=== PATIENT | female | born 1960 | race Caucasian/White ===

== ENCOUNTER 2018-07-06 10:48 | Emergency (ER) | payer OTHER ==
[2018-07-06 10:53] VITALS: BP 113/79; PULSE 79; RESP 18; TEMP 97.8
--- NOTE | 2018-07-06 11:24 | ED ---
General Adult HPI - General Chief complaint: Extremity Injury, Lower Stated complaint: left foot injury Time Seen by Provider: 07/06/18 10:55 Source: patient, RN notes reviewed Mode of arrival: wheelchair Limitations: no limitations - History of Present Illness Initial comments: Patient's a 58-year-old female presented to the emergency room today with chief complaint of injury to the left foot that occurred 2 days ago. She states she was staying at a chair when it gave over and she landed down onto the ground and hit her foot. She states that she has had pain to the second through fifth digits of the left foot and metatarsals region. Patient denies any other injuries or complaints. States she's not on any blood thinners. Patient denies any recent fever, chills, shortness of breath, chest pain, back pain, abdominal pain, nausea or vomiting, numbness or tingling, headaches or visual changes, or any other complaints. - Related Data Home Medications Medication Instructions Recorded Confirmed Simvastatin 40 mg PO DAILY 08/22/15 08/22/15 Allergies Allergy/AdvReac Type Severity Reaction Status Date / Time No Known Allergies Allergy Verified 07/06/18 10:53 Review of Systems ROS Statement: Those systems with pertinent positive or pertinent negative responses have been documented in the HPI. ROS Other: All systems not noted in ROS Statement are negative. Past Medical History Past Medical History: Hyperlipidemia History of Any Multi-Drug Resistant Organisms: None Reported Past Surgical History: Tubal Ligation Past Psychological History: No Psychological Hx Reported Smoking Status: Current every day smoker Past Alcohol Use History: None Reported Past Drug Use History: Marijuana General Exam - General Exam Comments Initial Comments: General: The patient is awake and alert, in no distress, and does not appear acutely ill. Neck: The neck is supple, there is no tenderness or JVD. Musculoskeletal: 2 through 5 on the left foot. Locally tender over the proximal fourth and fifth metatarsals. Tender to palpation over the distal second through fifth metatarsals down into the digits 2 through 5. Repeated no step-off. Pedal pulses 2+. Sensations are intact. Patient shows good range of motion. No tenderness to the left ankle or knee. Neurological: A&O x 3. CN II-XII intact, There are no obvious motor or sensory deficits. Coordination appears grossly intact. Speech is normal. Skin: Skin is warm and dry and no rashes or lesions are noted. Psychiatric: Normal mood and affect. Limitations: no limitations Course Vital Signs 07/06/18 10:49 Temperature 97.8 F Pulse Rate 79 Respiratory 18 Rate Blood Pressure 113/79 O2 Sat by Pulse 98 Oximetry Medical Decision Making - Medical Decision Making X-ray of the left foot reviewed and does show distal fifth metatarsal fracture nondisplaced with a proximal phalanx fracture of the fifth digit. Results were discussed with the patient. Options of a splint were discussed she states she would like to use a postop shoe and she will stay nonweightbearing given prescription for crutches and advised follow-up with orthopedics over the next 2 days. Disposition Clinical Impression: Foot fracture, left, Toe fracture, left Disposition: HOME SELF-CARE Condition: Good Instructions: Foot Fracture in Adults (ED) Additional Instructions: Please stay nonweightbearing. Please follow up orthopedics over the next 2 days. Please return to emergency room for any other concerns for any other concerns. Is patient prescribed a controlled substance at d/c from ED?: No Referrals: None,Stated [Primary Care Provider] - 1-2 days Brett Che MD [Medical Doctor] - 1-2 days Time of Disposition: 11:52
--- NOTE | 2018-07-06 11:24 | XR ---
EXAMINATION TYPE: XR foot complete LT , 3 VIEWS DATE OF EXAM ORDERED: 07/06/2018 HISTORY: Pain. COMPARISON: None. FINDINGS: There is a mildly displaced fracture of the distal metaphysis of the fifth metatarsal. The re also appears to be an undisplaced fracture of the base of the proximal phalanx of the fifth digit. No other definite fractures are seen. There is mild degenerative change in the left first MTP joint. There is a plantar calcaneal spur. IMPRESSION: 1. MINIMALLY DISPLACED FRACTURES OF THE DISTAL METAPHYSIS OF THE LEFT FIFTH METATARSAL TARSAL. 2. MINIMALLY DISPLACED FRACTURE OF THE EPIPHYSIS OF THE MEDIAL ASPECT OF THE PROXIMAL PHALANX OF THE LEFT FIFTH DIGIT. 3. PLANTAR CALCANEAL SPUR. 4. MILD DEGENERATIVE CHANGE. CODE A: INITIAL ENCOUNTER FOR CLOSED FRACTURE
== END 2018-07-06 12:07 | disposition home or self-care (01) ==
LOC: EC 10:48
DX: S92.355A Nondisplaced fracture of fifth metatarsal bone, left foot, initial encounter for closed fracture (principal); S92.512A Displaced fracture of proximal phalanx of left lesser toe(s), initial encounter for closed fracture; E78.5 Hyperlipidemia, unspecified; F17.200 Nicotine dependence, unspecified, uncomplicated; Z79.899 Other long term (current) drug therapy; W07.XXXA Fall from chair, initial encounter
CPT/HCPCS: 99283

== ENCOUNTER → 2020-07-15 | Outpatient (CLI) | payer OTHER ==
--- NOTE | 2020-07-15 12:48 | BD ---
EXAMINATION TYPE: Axial Bone Density DATE OF EXAM: 07/15/2020 COMPARISON: NONE CLINICAL HISTORY: Z 78.0, postmenopausal Height: 65 Weight: 129.6 FRAX RISK QUESTIONS: Alcohol (3 or more units per day): no Family History (Parent hip fracture): yes Glucocorticoids (More than 3mos): no (Ex: prednisone, prednisolone, methylprednisolone, dexamethasone, and hydrocortisone). History of Fracture in Adulthood: no Secondary Osteoporosis: 1. Type 1 Diabetes: no 2. Hyperthyroidism: no 3. Menopause before 45: no 4. Malnutrition: no 5. Chronic liver disease: no Rheumatoid Arthritis: no Current Tobacco Use: yes RISK FACTORS HISTORY OF: History of Wrist Fracture: bilateral When: as a child Surgery to Spine/Hip(right/left)/Wrist (right/left): no Family History of Osteoporosis: no Active: yes Diet low in dairy products/other sources of calcium: yes Postmenopausal woman: around age 55 Lost more than 2 inches in height since high school: no MEDICATIONS: cholesterol meds Additional History: EXAM MEASUREMENTS: Bone mineral densitometry was performed using the Page Mage System. Bone mineral density as measured about the Lumbar spine is: ----- L1-L4(G/cm2): 1.327 T Score Values are as follows: ----- L2: 1.2 ----- L3: 1.1 ----- L4: 2.4 ----- L1-L4: 1.2 Bone mineral density : baseline Bone mineral density about the R hip (g/cm2): 0.947 Bone mineral density about the L hip (g/cm2): 1.036 T Score values are as follows: -----R Neck: -0.7 -----L Neck: 0.0 -----R Total: -1.2 -----L Total: -0.7 Bone mineral density : baseline IMPRESSION: Normal (Values between +1 and -1 indicate normal bone mass). Consider repeating this study in 5 year s or sooner if there is some new clinical indication. NOTE: T-SCORE=SD OF THE YOUNG ADULT MEAN.
--- NOTE | 2020-07-19 08:43 | MM ---
Reason for exam: screening (asymptomatic). Last mammogram was performed 1 year and 8 months ago. History: Patient is postmenopausal. Family history of breast cancer in sister at age 47. Took hormonal contraceptives for 3 years. Physical Findings: A clinical breast exam by your physician is recommended on an annual basis and results should be correlated with mammographic findings. MG Screening Mammo w CAD Bilateral CC and MLO view(s) were taken. Prior study comparison: November 21, 2018, bilateral MG screening mammo w CAD. July 17, 2016, bilateral MG screening mammo w CAD. There are scattered fibroglandular densities. No significant changes when compared with prior studies. ASSESSMENT: Benign, BI-RAD 2 RECOMMENDATION: Routine screening mammogram of both breasts in 1 year.
== END | disposition home or self-care (01) ==
LOC: RADMAMWWP 07:55
PROVIDERS: ATTEND Internal Medicine
DX: Z12.31 Encounter for screening mammogram for malignant neoplasm of breast (principal); Z78.0 Asymptomatic menopausal state
CPT/HCPCS: 77067; 77080

== ENCOUNTER → 2021-09-28 | Outpatient (CLI) | payer OTHER ==
--- NOTE | 2021-09-28 12:53 | MM ---
Reason for exam: screening (asymptomatic). Last mammogram was performed 1 year and 2 months ago. History: Patient is postmenopausal. Family history of breast cancer in sister at age 47. Took hormonal contraceptives for 3 years. Physical Findings: A clinical breast exam by your physician is recommended on an annual basis and results should be correlated with mammographic findings. MG Screening Mammo w CAD Bilateral CC and MLO view(s) were taken. Prior study comparison: July 15, 2020, bilateral MG screening mammo w CAD. November 21, 2018, bilateral MG screening mammo w CAD. There are scattered fibroglandular densities. There are benign appearing round calcifications bilaterally. There is no discrete abnormality. ASSESSMENT: Benign, BI-RAD 2 RECOMMENDATION: Routine screening mammogram of both breasts in 1 year.
== END | disposition home or self-care (01) ==
LOC: RADMAMWWP 09:02
PROVIDERS: ATTEND Internal Medicine
DX: Z12.31 Encounter for screening mammogram for malignant neoplasm of breast (principal); Z78.0 Asymptomatic menopausal state; Z80.3 Family history of malignant neoplasm of breast
CPT/HCPCS: 77067

== ENCOUNTER 2022-04-24 18:24 | Emergency (ER) | payer OTHER ==
[2022-04-24] MEDS ORDERED: IBUPROFEN 600 MG TAB PO STA (19:00)
[2022-04-24 19:31] LABS: Basophils % (A) 1 %; Eosinophils # (A) 0.1 k/uL (0-0.7); Eosinophils % (A) 1 %; HCT 40.3 % (34.0-46.0); HGB 13.2 gm/dL (11.4-16.0); Lymphocytes # (A) 0.2 k/uL (1.0-4.8); Lymphocytes % (A) 4 %; MCHC 32.8 g/dL (31.0-37.0); MCV 88.3 fL (80.0-100.0); Mean Platelet Volume 8.3; Monocytes # (A) 0.2 k/uL (0-1.0); Monocytes % (A) 4 %; Neutrophils # (A) 5.4 k/uL (1.3-7.7); Neutrophils % (A) 90 %; Platelet Count 171 k/uL (150-450); RBC 4.56 m/uL (3.80-5.40); RDW 12.7 % (11.5-15.5)
[2022-04-24 19:42] LABS: ALT 11 U/L (4-34); AST 19 U/L (14-36); African American GFR (CKD) >90 (>60 ml/min/1.73 sqM); Albumin 3.9 g/dL (3.5-5.0); Alkaline Phosphatase 88 U/L (38-126); Anion Gap 9 mmol/L; Blood Urea Nitrogen 9 mg/dL (7-17); Carbon Dioxide 22 mmol/L (22-30); Chloride 106 mmol/L (98-107); Glucose 144 mg/dL (74-99); Non-African American GFR(CKD) 80 (>60 ml/min/1.73 sqM); Potassium 3.5 mmol/L (3.5-5.1); Sodium 137 mmol/L (137-145); Total Bilirubin <0.1 mg/dL (0.2-1.3); Total Protein 6.4 g/dL (6.3-8.2)
[2022-04-24] MEDS ORDERED: KETOROLAC 15 MG/ML 1 ML VIAL IVP STA (20:06)
--- NOTE | 2022-04-24 20:46 | XR ---
EXAMINATION TYPE: XR chest 2V DATE OF EXAM: 04/24/2022 COMPARISON: NONE HISTORY: Pain TECHNIQUE: 2 views FINDINGS: Heart and mediastinum are normal. Lungs are clear. Diaphragm is normal. Slight anterior wed ging of a midthoracic vertebra 20%. There is osteopenia. IMPRESSION: No active cardiopulmonary disease. Normal heart.
[2022-04-24] MEDS ORDERED: SODIUM CHLORIDE 0.9% 1,000 ML IV STA (20:51)
--- NOTE | 2022-04-24 21:03 | ED ---
General Adult HPI - General Chief complaint: Fever Stated complaint: COVID + Time Seen by Provider: 04/24/22 19:00 Source: patient, EMS, RN notes reviewed Mode of arrival: EMS Limitations: no limitations - History of Present Illness Initial comments: Patient is a 61-year-old female presented to the emergency room with complaints of fatigue, fevers and body aches for 24 hours with exposure to COVID one week ago. She reports some palpitations, fevers, and occasional chills. She notes T-max at home of 102.7 despite utilizing tylenol at home. She denies any typical chest pain, severe shortness of breath, nausea, vomiting, abdominal pain, lethargy or altered mental status. She has a past medical history significant for diabetes and hyperlipidemia. - Related Data Home Medications Medication Instructions Recorded Confirmed Simvastatin 40 mg PO HS 08/22/15 04/24/22 Ergocalciferol (Vitamin D2) 1,250 mcg PO MO 04/24/22 04/24/22 [Drisdol (50,000 Iu)] Ezetimibe [Zetia] 10 mg PO HS 04/24/22 04/24/22 metFORMIN HCL [Glucophage] 500 mg PO BID 04/24/22 04/24/22 Previous Rx's Medication Instructions Recorded Nirmatrelvir/Ritonavir [Paxlovid 1 each PO BID 5 Days #10 tab 04/24/22 2X150 mg-100 mg (Eua)] Allergies Allergy/AdvReac Type Severity Reaction Status Date / Time No Known Allergies Allergy Verified 04/24/22 20:54 Review of Systems ROS Statement: Those systems with pertinent positive or pertinent negative responses have been documented in the HPI. ROS Other: All systems not noted in ROS Statement are negative. Past Medical History Past Medical History: Diabetes Mellitus, Hyperlipidemia History of Any Multi-Drug Resistant Organisms: None Reported Past Surgical History: Tubal Ligation Past Psychological History: No Psychological Hx Reported Smoking Status: Current every day smoker Past Alcohol Use History: None Reported Past Drug Use History: Marijuana General Exam General appearance: alert, in no apparent distress Head exam: Present: atraumatic, normocephalic, normal inspection Eye exam: Present: normal appearance, PERRL, EOMI. Absent: scleral icterus, c onjunctival injection, periorbital swelling ENT exam: Present: normal exam, mucous membranes moist Neck exam: Present: normal inspection. Absent: tenderness, meningismus, lymphadenopathy Respiratory exam: Present: normal lung sounds bilaterally. Absent: respiratory distress, wheezes, rales, rhonchi, stridor Cardiovascular Exam: Present: normal rhythm, tachycardia, normal heart sounds. Absent: systolic murmur, diastolic murmur, rubs, gallop GI/Abdominal exam: Present: soft, normal bowel sounds. Absent: distended, tenderness, guarding, rebound, rigid Extremities exam: Present: normal inspection, full ROM. Absent: pedal edema, joint swelling Back exam: Present: normal inspection Neurological exam: Present: alert, oriented X3, CN II-XII intact Psychiatric exam: Present: normal affect, normal mood Skin exam: Present: warm, dry, intact, normal color. Absent: rash Course Vital Signs 04/24/22 04/24/22 04/24/22 18:36 21:04 21:38 Temperature 103.3 F H 101.5 F H Pulse Rate 127 H 102 H Respiratory 20 18 Rate Blood Pressure 118/60 O2 Sat by Pulse 94 L 96 Oximetry 04/24/22 22:54 Temperature Pulse Rate 86 Respiratory 16 Rate Blood Pressure 136/85 O2 Sat by Pulse 95 Oximetry Medical Decision Making - Medical Decision Making 61-year-old female presenting with fatigue, fevers and palpitations with tachycardia and fever on exam. Recent Covid exposure. Due to tachycardia and fever will workup for sepsis septic shock with CBC, CMP, lactic acid, tsh with reflex and chest x-ray along with COVID swab. Will give IV fluids and Toradol. Covid Positive. Chest x-ray without acute cardiopulmonary processes. Calcium level low on labs will add ionized calcium. Ionized calcium slightly low at 4.4; no indication for admission. TSH slightly low, free T4 normal. Improved temperature and heart rate after IV fluid bolus and Toradol. Will discharge home with follow-up with her primary care provider after quarantine on Paxil of a prescription and symptomatic management. Advise quarantining for the next 5 days. Case discussed with Dr. Garcia. - Lab Data Result diagrams: 04/24/22 19:22 04/24/22 19:22 Lab Results 04/24/22 04/24/22 04/24/22 Range/Units 19:22 19: 19: WBC 6.0 (3.8-10.6) k/uL RBC 4.56 (3.80-5.40) m/uL Hgb 13.2 (11.4-16.0) gm/dL Hct 40.3 (34.0-46.0) % MCV 88.3 (80.0-100.0) fL MCH 29.0 (25.0-35.0) pg MCHC 32.8 (31.0-37.0) g/dL RDW 12.7 (11.5-15.5) % Plt Count 171 (150-450) k/uL MPV 8.3 Neutrophils % 90 % Lymphocytes % 4 % Monocytes % 4 % Eosinophils % 1 % Basophils % 1 % Neutrophils # 5.4 (1.3-7.7) k/uL Lymphocytes # 0.2 L (1.0-4.8) k/uL Monocytes # 0.2 (0-1.0) k/uL Eosinophils # 0.1 (0-0.7) k/uL Basophils # 0.0 (0-0.2) k/uL Sodium 137 (137-145) mmol/L Potassium 3.5 (3.5-5.1) mmol/L Chloride 106 (98-107) mmol/L Carbon Dioxide 22 (22-30) mmol/L Anion Gap 9 mmol/L BUN 9 (7-17) mg/dL Creatinine 0.81 (0.52-1.04) mg/dL Est GFR (CKD-EPI)AfAm >90 (>60 ml/min/1.73 sqM) Est GFR (CKD-EPI)NonAf 80 (>60 ml/min/1.73 sqM) Glucose 144 H (74-99) mg/dL Plasma Lactic Acid Abhishek (0.7-2.0) mmol/L Calcium 8.0 L (8.4-10.2) mg/dL Ionized Calcium Shelly (4.5-5.3) mg/dL Total Bilirubin <0.1 L (0.2-1.3) mg/dL AST 19 (14-36) U/L ALT 11 (4-34) U/L Alkaline Phosphatase 88 (38-126) U/L Total Protein 6.4 (6.3-8.2) g/dL Albumin 3.9 (3.5-5.0) g/dL TSH (0.465-4.680) mIU/L Free T4 (0.78-2.19) ng/dL Coronavirus (PCR) (Not Detectd) Heterophile Antibody Negative (Negative) 04/24/22 04/24/22 04/24/22 Range/Units 19:22 19:22 22:04 WBC (3.8-10.6) k/uL RBC (3.80-5.40) m/uL Hgb (11.4-16.0) gm/dL Hct (34.0-46.0) % MCV (80.0-100.0) fL MCH (25.0-35.0) pg MCHC (31.0-37.0) g/dL RDW (11.5-15.5) % Plt Count (150-450) k/uL MPV Neutrophils % % Lymphocytes % % Monocytes % % Eosinophils % % Basophils % % Neutrophils # (1.3-7.7) k/uL Lymphocytes # (1.0-4.8) k/uL Monocytes # (0-1.0) k/uL Eosinophils # (0-0.7) k/uL Basophils # (0-0.2) k/uL Sodium (137-145) mmol/L Potassium (3.5-5.1) mmol/L Chloride (98-107) mmol/L Carbon Dioxide (22-30) mmol/L Anion Gap mmol/L BUN (7-17) mg/dL Creatinine (0.52-1.04) mg/dL Est GFR (CKD-EPI)AfAm (>60 ml/min/1.73 sqM) Est GFR (CKD-EPI)NonAf (>60 ml/min/1.73 sqM) Glucose (74-99) mg/dL Plasma Lactic Acid Abhishek 1.0 (0.7-2.0) mmol/L Calcium (8.4-10.2) mg/dL Ionized Calcium Shelly 4.4 L (4.5-5.3) mg/dL Total Bilirubin (0.2-1.3) mg/dL AST (14-36) U/L ALT (4-34) U/L Alkaline Phosphatase (38-126) U/L Total Protein (6.3-8.2) g/dL Albumin (3.5-5.0) g/dL TSH 0.238 L (0.465-4.680) mIU/L Free T4 1.43 (0.78-2.19) ng/dL Coronavirus (PCR) Detected A (Not Detectd) Heterophile Antibody (Negative) - Radiology Data Radiology results: report reviewed, image reviewed No active cardiopulmonary process. Normal heart. Disposition Clinical Impression: COVID Disposition: HOME SELF-CARE Condition: Stable Instructions (If sedation given, give patient instructions): Fever in Adults (ED), COVID-19 (Coronavirus Disease 2019) (ED) Additional Instructions: Please complete course of Paxlovid. Please hold your simvastatin while taking it. Please quarantine for 5 days after testing positive and restart quarantine if symptoms worsen. Please utilize Tylenol as needed for fevers and pain. Taking vitamin C, Zinc, vitamin D 50 mcg, and melatonin may help symptom recovery. After quarantine please follow-up with your primary care provider. Please return to the Emergency Department if symptoms worsen or any other concerns. Prescriptions: Nirmatrelvir/Ritonavir [Paxlovid 2X150 mg-100 mg (Eua)] 1 each PO BID 5 Days #10 tab Is patient prescribed a controlled substance at d/c from ED?: No Referrals: Harsha Powell MD [Primary Care Provider] - 1-2 days Time of Disposition: 22:31
[2022-04-24 21:04] VITALS: TEMP 101.5
[2022-04-24 22:51] LABS: Ionized Calcium 4.4 mg/dL (4.5-5.3)
[2022-04-24 22:56] VITALS: BP 136/85; PULSE 86; RESP 16
[2022-04-24 23:28] LABS: T4, Free (Free Thyroxine) 1.43 ng/dL (0.78-2.19)
== END 2022-04-24 22:56 | disposition home or self-care (01) ==
LOC: EC 18:24
DX: U07.1 COVID-19 (principal); E11.9 Type 2 diabetes mellitus without complications; E78.5 Hyperlipidemia, unspecified; F17.200 Nicotine dependence, unspecified, uncomplicated
CPT/HCPCS: 36415; 71046; 80053; 82330; 83605; 84439; 84443; 85025; 86308; 87040; 87635; 96360; 96361; 99284

== ENCOUNTER 2023-12-02 11:56 | Emergency (ER) | payer OTHER ==
--- NOTE | 2023-12-02 12:08 | ED ---
Lower Extremity Injury HPI - General Chief Complaint: Extremity Injury, Lower Stated Complaint: Right leg injury Time Seen by Provider: 12/02/23 11:58 Source: patient, RN notes reviewed Mode of arrival: EMS Limitations: no limitations - History of Present Illness Initial Comments: This is a 63-year-old female who presents to the emergency department for a right leg injury. Patient slipped down 4-5 stairs, and landed on her right leg, causing a substantial deformity. Denies hitting her head or sustaining any loss of consciousness. Also denies any additional injuries. Not taking any blood thinners. EMS put the patient in a splint. They treated her with 50 mcg of fentanyl and 4 mg of Zofran. States that it was mildly beneficial, however she is still in significant pain. MD Complaint: leg injury - Related Data Home Medications Medication Instructions Recorded Confirmed Simvastatin 40 mg PO HS 08/22/15 04/24/22 Ergocalciferol (Vitamin D2) 1,250 mcg PO MO 04/24/22 04/24/22 [Drisdol (50,000 Iu)] Ezetimibe [Zetia] 10 mg PO HS 04/24/22 04/24/22 metFORMIN HCL [Glucophage] 500 mg PO BID 04/24/22 04/24/22 Previous Rx's Medication Instructions Recorded Nirmatrelvir/Ritonavir [Paxlovid 1 each PO BID 5 Days #10 tab 04/24/22 2X150 mg-100 mg (Eua)] HYDROcodone/APAP 7.5-325MG [Earth 1 tab PO Q6HR PRN 3 Days #12 tab 12/02/23 7.5-325] Ibuprofen 800 mg PO Q8H PRN #30 tab 12/02/23 Allergies Allergy/AdvReac Type Severity Reaction Status Date / Time No Known Allergies Allergy Verified 12/02/23 12:03 Review of Systems ROS Statement: Those systems with pertinent positive or pertinent negative responses have been documented in the HPI. ROS Other: All systems not noted in ROS Statement are negative. Past Medical History Past Medical History: Diabetes Mellitus, Hyperlipidemia History of Any Multi-Drug Resistant Organisms: None Reported Past Surgical History: Tubal Ligation Past Psychological History: No Psychological Hx Reported Smoking Status: Current every day smoker Past Alcohol Use History: None Reported Past Drug Use History: Marijuana General Exam Limitations: no limitations General appearance: alert, in distress Head exam: Present: atraumatic, normocephalic, normal inspection Respiratory exam: Present: normal lung sounds bilaterally. Absent: respiratory distress, wheezes, rales, rhonchi, stridor Cardiovascular Exam: Present: regular rate, normal rhythm, normal heart sounds. Absent: systolic murmur, diastolic murmur, rubs, gallop, clicks Extremities exam: Present: other (Deformity over the area of the distal tib-fib with obvious bulge and external rotation of the right foot/ankle. 2+ DP and PT pulses.) Neurological exam: Present: alert, oriented X3, CN II-XII intact Psychiatric exam: Present: normal affect, normal mood Skin exam: Present: warm, dry, intact, normal color. Absent: rash Course Vital Signs 12/02/23 12/02/23 12/02/23 11:58 12:37 15:11 Temperature Pulse Rate 96 91 Respiratory 18 16 Rate Blood Pressure 158/97 190/96 O2 Sat by Pulse 99 98 Oximetry 12/02/23 12/02/23 12/02/23 15:16 15:19 15:36 Temperature Pulse Rate 90 77 83 Respiratory 12 18 18 Rate Blood Pressure 185/86 119/87 137/117 O2 Sat by Pulse 98 98 96 Oximetry 12/02/23 12/02/23 12/02/23 15:56 16:16 17:06 Temperature 98.4 F Pulse Rate 78 73 80 Respiratory 16 18 18 Rate Blood Pressure 156/77 120/83 169/94 O2 Sat by Pulse 98 96 97 Oximetry Procedures - Orthopedic Fracture Reduction Fracture #1 Consent Obtained: verbal consent, written consent Side: right Fracture Reduction Location: tibia, fibula Analgesia: procedural sedation Technique: direct manipulation Post Reduction X-rays Demonstrate: acceptable reduction Post-Reduction Neuro Exam: intact Post-Reduction Vascular Exam: intact Splint Applied: Yes Patient Tolerated Procedure: well - Orthopedic Splinting/Casting Injury #1 Side: right Lower Extremity Injury Location: long leg, ankle Lower Extremity Immobilizer: posterior splint, stirrup splint Other Orthopedic Equipment: crutches Medical Decision Making - Medical Decision Making This is a 63 year old female who presents to the emergency department for a right leg injury. Was pt. sent in by a medical professional or institution? @ -No Did you speak to anyone other than the patient for history? @ -No Did you review nursing and triage notes? @ -Yes, and I agree, it is accurate with regards to the patient's symptoms. Were old charts reviewed? @ -No Differential Diagnosis? @ -Differential Musculoskeletal: Muscular strain, contusion, ligament sprain, fracture, arthritis, septic arthritis, bursitis, cellulitis, muscle spasm, nerve compression, DVT, arterial occlusion, herpes zoster, electrolyte abnormality, tumor.... This is not meant to be in all inclusive list EKG interpreted by me (3pts min.)? @ -Not obtained X-rays interpreted by me (1pt min.)? @ -X-ray of the right tib-fib obtained. My interpretation identifies a distal tib-fib fracture. Postreduction x-ray of the right tib-fib obtained. My interpretation identifies improved alignment of the ankle fractures. CT interpreted by me (1pt min.)? @ -Not obtained U/S interpreted by me (1pt. min.)? @ -Not obtained What testing was considered but not performed? (CT, X-rays, U/S, labs)? Why? @ -None What meds were considered but not given? Why? @ -None Did you discuss the management of the patient with other professionals? @ -No Did you reconcile home meds? @ -No Was smoking cessation discussed for >3mins.? @ -I discussed smoking cessation for greater than 3 minutes. The risk of smoking were discussed with the patient including but not limited to risks of cancer, stroke, coronary artery disease and COPD. Also discussed with patient were multiple methods of quitting smoking. Lastly we discussed the financial cost of smoking. Was critical care preformed (if so, how long)? @ -No Were there social determinants of health that impacted care today? How? (Homelessness, low income, unemployed, alcoholism, drug addiction, transportation, low edu. Level, literacy, decrease access to med. care, senior living, rehab)? @ -No Was there de-escalation of care discussed even if they declined? (Discuss DNR or withdrawal of care, Hospice)? @ -No What co-morbidities impacted this encounter? (DM, HTN, Smoking, COPD, CAD, Cancer, CVA, Hep., AIDS, mental health diagnosis, sleep apnea, morbid obesity)? @ -DM, HLD, smoking Was patient admitted / discharged? @ -Discharged. X-ray of the right tib-fib and foot obtained. This demonstrates an acute intra-articular fracture of the distal tibia with posterior dislocation/subluxation of the foot with respect to the tibia. There is also an acute fracture of the fibula distally without extension to the distal tibiofibular joint. Patient requested to proceed with conscious sedation versus pain medication. Conscious sedation performed using propofol with ED attending, Dr. Shelton. Fracture reduction performed by ED attending and I assisted with posterior stirrup splint application. Postreduction x-rays demonstrate significantly improved alignment of the ankle fractures. There is some residual displacement of the posterior malleolus fracture fragment by 5 mm. Patient given crutches and information for orthopedic follow up. Rx for Ibuprofen and Earth provided with dosing instructions reviewed. Patient discharged home in stable condition. Undiagnosed new problem with uncertain prognosis? @ -None Drug Therapy requiring intensive monitoring for toxicity (Heparin, Nitro, Insulin, Cardizem)? @ -None Were any procedures done? @ -Conscious sedation with propofol, fracture reduction of the right distal tib-fib, followed by posterior stirrup splint application. Diagnosis/symptom? @ -Distal tib/fib fracture, fall Acute, or Chronic, or Acute on Chronic? @ -Acute Uncomplicated (without systemic symptoms) or Complicated (systemic symptoms)? @ -Uncomplicated Side effects of treatment? @ -None Exacerbation, Progression, or Severe Exacerbation] @ -Not applicable Poses a threat to life or bodily function? @ -This will limit her ability to ambulate for the mean time. Return precautions reviewed in depth, the patient is instructed to return to the emergency department with any new, worsening, or concerning symptoms. Patient verbalized understanding. This case was discussed in detail with the attending ED physician, Dr. Shelton. Presentation, findings, and treatment plan discussed in detail as well. - Radiology Data Radiology results: report reviewed, image reviewed Disposition Clinical Impression: Fall, Fracture of distal end of tibia with fibula, Nicotine dependence Disposition: HOME SELF-CARE Instructions (If sedation given, give patient instructions): Ankle Fracture (ED), Leg Fracture (ED), Moderate Sedation (ED), Splint Care (ED), Procedural Sedation (ED) Additional Instructions: Return to the emergency department with any new, worsening, or concerning symptoms. Alternate with ibuprofen and Tylenol as needed for pain relief. Take the Earth sparingly when your pain is the most severe. Try to keep the leg elev ated. Contact orthopedics as listed below first thing tomorrow morning for a follow-up appointment. Prescriptions: Ibuprofen 800 mg PO Q8H PRN #30 tab PRN Reason: Pain HYDROcodone/APAP 7.5-325MG [Earth 7.5-325] 1 tab PO Q6HR PRN 3 Days #12 tab PRN Reason: Pain Is patient prescribed a controlled substance at d/c from ED?: Yes When asked, does pt state using other controlled substances?: No If prescribed controlled substance>3 days was MAPS reviewed?: Prescribed <3 Days Referrals: Harsha Powell MD [Primary Care Provider] - 1-2 days Luke Ovalles DO [Doctor of Osteopathic Medicine] - 1-2 days
[2023-12-02] MEDS: KETOROLAC 15 MG/ML 1 ML VIAL IVP STA (12:18)
[2023-12-02] MEDS: HYDROmorphone 1 MG/ML 1 ML SYRINGE IVP STA (12:20)
--- NOTE | 2023-12-02 13:03 | XR ---
EXAMINATION TYPE: XR tibia fibula RT, XR foot limited RT DATE OF EXAM: 12/02/2023 12:13 PM CLINICAL INDICATION:Female, 63 years old with history of Injury with deformity; [facility] COMPARISON: None TECHNIQUE: XR tibia fibula RT, XR foot limited RT; tibia/fibula was examined in AP and lateral projec tions. FINDINGS/IMPRESSION: 1. Acute intra-articular fracture of the distal tibia with posterior dislocation/subluxation of the foot with respect to the tibia. 2. Acute fracture of the fibula distally without extension to the distal tibiofibular joint. 3. There also appears to be a rotational component to the foot positioning.
[2023-12-02] MEDS: HYDROmorphone 0.5 MG/0.5 ML SYRINGE IVP STA (14:13)
[2023-12-02] MEDS: PROPOFOL 10 MG/ML 20 ML VIAL IV ONE (15:11)
[2023-12-02] MEDS: NALOXONE 0.4 MG/ML 1 ML VIAL IVP STA (15:16)
[2023-12-02 16:46] VITALS: RESP 18
--- NOTE | 2023-12-02 16:53 | XR ---
EXAMINATION TYPE: XR tibia fibula RT DATE OF EXAM: 12/02/2023 3:29 PM CLINICAL INDICATION:Female, 63 years old with history of Postreduction x-rays; [facility] COMPARISON: X-rays earlier today 12:16 PM TECHNIQUE: XR tibia fibula RT; tibia/fibula was examined in AP and lateral projections. FINDINGS: A splint has been placed, limiting bony details. Proximal tibia and fibula appear intact and normally aligned. There has been reduction of the previous distal tibial and fibular fractures with nearly no rmal alignment at the tibiotalar joint restored. Almost all the fragments appear in close to anatomic alignment, however the posterior malleolus fracture fragment is displaced about 5 mm posteriorly fro m the rest of the bone. Moderate-sized ankle joint effusion is suggested. Talar dome looks grossly in tact on these views. IMPRESSION: 1. Status post reduction and splinting, with significantly improved alignment of the ankle fractures . 2. Residual displacement of the posterior malleolus fracture fragment posteriorly by 5 mm.
[2023-12-02 17:25] VITALS: BP 169/94; PULSE 80; TEMP 98.4
== END 2023-12-02 17:10 | disposition home or self-care (01) ==
LOC: EC 11:56
DX: S82.301A Unspecified fracture of lower end of right tibia, initial encounter for closed fracture (principal); E11.9 Type 2 diabetes mellitus without complications; E78.5 Hyperlipidemia, unspecified; F17.200 Nicotine dependence, unspecified, uncomplicated; Z79.84 Long term (current) use of oral hypoglycemic drugs; Z79.899 Other long term (current) drug therapy; W01.0XXA Fall on same level from slipping, tripping and stumbling without subsequent striking against object, initial encounter
CPT/HCPCS: 73590; 73620; 99284; 96374; 96376; 96375 ×2; 99406; 27752; 99152; J2310; J1170 ×2; J1885; J2704

== ENCOUNTER → 2024-07-17 | Outpatient (CLI) | payer OTHER ==
--- NOTE | 2024-07-17 10:48 | BD ---
EXAMINATION TYPE: Axial Bone Density DATE OF EXAM: 07/17/2024 CLINICAL HISTORY: 64 years old Female. ICD-10 CODE: N95.1 MENOPAUSAL M85.88 BONE DENS , Additional History: Height: 64 Weight: 125 FRAX RISK QUESTIONS: Family History (Parent hip fracture): yes History of Fracture in Adulthood: yes Secondary Osteoporosis: Current Tobacco Use: yes RISK FACTORS HISTORY OF: MEDICATIONS: EXAM MEASUREMENTS: Bone mineral densitometry was performed using the [employer] System. Bone mineral density as measured about the Lumbar spine is: ----- L1-L4(G/cm2): 1.214 T Score Values are as follows: ----- L1: -0.6 ----- L2: 0.0 ----- L3: 0.7 ----- L4: 0.8 ----- L1-L4: 0.3 Z Score Values are as follows: ----- L1: 1.1 ----- L2: 1.7 ----- L3: 2.4 ----- L4: 2.5 ----- L1-L4: 2.0 Bone mineral density has: Decreased -8.5% since study of: 07-15-20 Bone mineral density about the R hip (g/cm2): 0.774 Bone mineral density about the L hip (g/cm2): 0.905 T Score values are as follows: -----R Neck: -1.1 -----L Neck: -0.3 -----R Total: -1.9 -----L Total: -0.8 Z Score values are as follows: -----R Neck: 0.4 -----L Neck: 1.2 -----R Total: -0.6 -----L Total: 0.5 Bone mineral density has: Decreased -5.8% since study of: 07-15-20 FRAX%s: The graph provided illustrates a 22.7% chance for a major osteoporotic fx and a 1.7% chance f or the hips probability for fx in 10 years time. IMPRESSION: Normal (Values between +1 and -1 indicate normal bone mass). Consider repeating this study in 5 year s or sooner if there is some new clinical indication. NOTE: T-SCORE=SD OF THE YOUNG ADULT MEAN. [facility], , 07/17/2024 10:45 AM
--- NOTE | 2024-07-18 14:00 | MM ---
Reason for Exam: Screening (asymptomatic). Last mammogram was performed 1 year(s) and 8 month(s) ago. Patient History: Menarche at age 13. First Full-Term at age 20. Postmenopausal. Patient used Hormonal Contraceptives for 3 years. Sister had breast cancer, age 47. Risk Values: Kristi 5 year model risk: 2.9%. NCI Lifetime model risk: 12.1%. Prior Study Comparison: 07/15/2020 Bilateral Screening Mammogram, [facility]. 09/28/2021 Bilateral Screening Mammogram, [facility]. 11/01/2022 Bilateral MG screening mammo w CAD, [facility]. Tissue Density: There are scattered areas of fibroglandular density. Findings: Analyzed By CAD. Right breast: There is no suspicious group of microcalcifications or new suspicious mass. Left breast: There is no suspicious group of microcalcifications or new suspicious mass. Architectural distortion left breast middle depth posterior nipple line subtly medial and CC view. Overall Assessment: Incomplete: need additional imaging evaluation, BI-RAD 0 Management: Diagnostic Mammogram of the left breast. [facility] will attempt to contact patient to return for supplemental views and ultrasound if indicated. Patient should continue monthly self-breast exams. A clinical breast exam by your physician is recommended on an annual basis. This exam should not preclude additional follow-up of suspicious palpable abnormalities. Note on Kristi scores and lifetime risk: 1. A Kristi score greater than 3% is considered moderate risk. If this is the case, consider specialist referral to assess eligibility for a risk reducing agent. 2. If overall lifetime risk for the development of breast cancer is 20% or higher, the patient may qualify for future screening with alternating mammogram and breast MRI. [facility], , 07/18/2024 1:57 PM. Electronically signed and approved by: Rosendo Roberts DO
== END | disposition home or self-care (01) ==
LOC: RADMAMWWP 08:31
PROVIDERS: ATTEND Internal Medicine
DX: Z12.31 Encounter for screening mammogram for malignant neoplasm of breast (principal); Z78.0 Asymptomatic menopausal state; Z80.3 Family history of malignant neoplasm of breast; R92.323 Mammographic fibroglandular density, bilateral breasts; M85.89 Other specified disorders of bone density and structure, multiple sites
CPT/HCPCS: 77067; 77080

== ENCOUNTER → 2024-07-28 | Outpatient (CLI) | payer OTHER ==
--- NOTE | 2024-07-28 14:36 | MM ---
Reason for Exam: Additional evaluation requested from abnormal screening. Last screening mammogram was performed less than 1 month ago. Patient History: Menarche at age 13. First Full-Term at age 20. Postmenopausal. Patient used Hormonal Contraceptives for 3 years. Sister had breast cancer, age 47. Risk Values: Kristi 5 year model risk: 2.9%. NCI Lifetime model risk: 12.1%. Prior Study Comparison: 09/28/2021 Bilateral Screening Mammogram, [facility]. 11/01/2022 Bilateral MG screening mammo w CAD, [facility]. 07/17/2024 Bilateral MG screening mammo w CAD, [facility]. Tissue Density: Left: There are scattered areas of fibroglandular density. Findings: Analyzed By CAD. The central inner asymmetric density middle depth disperses on additional views with an appearance unchanged from prior studies. Findings compatible with superimposition shadow. Overall Assessment: Benign, BI-RAD 2 Management: Screening Mammogram of both breasts in 1 year. Results were given to the patient verbally at the time of exam. Patient should continue monthly self-breast exams. A clinical breast exam by your physician is recommended on an annual basis. This exam should not preclude additional follow-up of suspicious palpable abnormalities. Note on Kristi scores and lifetime risk: 1. A Kristi score greater than 3% is considered moderate risk. If this is the case, consider specialist referral to assess eligibility for a risk reducing agent. 2. If overall lifetime risk for the development of breast cancer is 20% or higher, the patient may qualify for future screening with alternating mammogram and breast MRI. [facility], , 07/28/2024 2:33 PM. Electronically signed and approved by: Jennifer Treviño M.D. Radiologist
== END | disposition home or self-care (01) ==
LOC: RADMAMWWP 14:15
PROVIDERS: ATTEND Internal Medicine
DX: R92.8 Other abnormal and inconclusive findings on diagnostic imaging of breast (principal); Z78.0 Asymptomatic menopausal state; Z80.3 Family history of malignant neoplasm of breast; R92.322 Mammographic fibroglandular density, left breast
CPT/HCPCS: 77065; G0279; 77061